=== PATIENT | male | born 1985 | race Caucasian/White ===

== ENCOUNTER 2019-08-15 15:14 | Emergency (ER) | payer MEDICAID ==
[~2019-08-15] VITALS: Ht 170.2 cm; Wt 68.0 kg
[2019-08-15 15:21] VITALS: BP 128/72
--- NOTE | 2019-08-15 15:21 | NUR ---
ED Nurse Note: PT walked in to ed for C/O pain to lower abd area. pt states he has not had a BM for over a week.
--- NOTE | 2019-08-15 15:30 | NUR ---
ED Nurse Note: Blood sample collected and sent to lab
--- NOTE | 2019-08-15 15:39 | Emergency Room Report ---
History of Present Illness General Chief Complaint: Abdominal Pain Source: Patient Present Illness HPI 34 YO male with 10/10 cramping abdominal pain x 1 day with bloating and constipation x 1 week. Pt. describes pain as constant in nature. Pt. currently on 8mg Daily of subutex for opiate dependence. Last BM was 1 week ago. Patient reports history of constipation he states he is not currently taking medications. Patient reports he has been taking more of his Subutex and normal states he has been taking approximately 9 to 10 mg daily when he is prescribed 8 mg. Patient denies nausea or vomiting, fevers or chills, diarrhea, blood in the stool or black tarry stools. Patient denies previous abdominal surgical history. Patient denies any other significant past medical history. Patient reports history of allergy to NSAIDs. No other aggravating or relieving factors at this time. 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 Patient History Past Medical History: see triage record Past Surgical History: none Pertinent Family History: none Social History: Reports: drug use - opiates Immunizations: UTD Reviewed Nursing Documentation: PMH: Agreed; PSxH: Agreed Nursing Documentation-PMH Past Medical History: No History, Except For Review of Systems All Other Systems: negative except mentioned in HPI Physical Exam Vital Signs Date Time Temp Pulse Resp B/P (MAP) Pulse Ox O2 Delivery O2 Flow Rate FiO2 08/15/19 15:22 97.5 125 16 112/73 (86) 97 Room Air Sp02 EP Interpretation: reviewed, normal General Appearance: no apparent distress, alert, GCS 15, non-toxic Head: normocephalic, atraumatic Eyes: bilateral eye normal inspection, bilateral eye PERRL ENT: hearing grossly normal, normal voice Neck: full range of motion Respiratory: lungs clear, normal breath sounds, speaking full sentences Cardiovascular #1: regular rate, rhythm Gastrointestinal: distended, tenderness - diffuse tenderness of entire lower abdomen. Genitourinary: normal inspection, no CVA tenderness Musculoskeletal: back normal, normal range of motion, gait/station normal, non- tender Neurologic: alert, motor strength/tone normal, oriented x3, sensory intact, responsive, speech normal Psychiatric: judgement/insight normal Skin: no rash, normal color Medical Decision Making PA Attestation Dr. Hook Is my supervising Physician whom patient management has been discussed with. Diagnostic Impression: Primary Impression: Constipation due to opioid therapy ER Course 34 YO male with 10/10 cramping abdominal pain x 1 day with bloating and constipation x 1 week. Pt. describes pain as constant in nature. Pt. currently on subutex for opiate dependence. Last BM was 1 week ago. Patient reports history of constipation he states he is not currently taking medications. Patient reports he has been taking more of his Subutex and normal states he has been taking approximately 9 to 10 mg daily when he is prescribed 8 mg. Patient denies nausea or vomiting, fevers or chills, diarrhea, blood in the stool or black tarry stools. Patient denies previous abdominal surgical history. Patient denies any other significant past medical history. Patient reports history of allergy to NSAIDs. No other aggravating or relieving factors at this time. Ddx considered but are not limited to Diverticulitis, acute appendicitis, diarrhea,UC, PUD, GE, pancreatitis, gallstone, Obstruction Vital signs: are WNL, pt. is afebrile H&PE are most consistent with possible GI obstruction ORDERS: -CBC, CMP, lipase, UA: WNL - CT Abdomen and pelvis. w. contrast: moderate amt. of stool/ constipation ED INTERVENTIONS: -- 1000NS, -Tylenol PO - Enema x 2 12mg Relistor Sq --PT. began having BM's in the ED. d/w pt. he will be d/c with strict ED return precautions. d/w pt. signs and symptoms that would indicate prompt return. -I do not identify an emergent condition at this time. With current presentation , pt. is stable for close outpatient follow up and conservative treatment. D/ w pt. to return promptly to ED with worsening or new symptoms.- Pt. verbalizes' understanding and agreement with proposed treatment plan. DISCHARGE: At this time pt. is stable for d/c to home. Will provide printed patient care instructions, and any necessary prescriptions. Care plan and follow up instructions have been discussed with the patient prior to discharge. Labs Test 5/29/20 15:30 White Blood Count 6.9 K/UL (4.8-10.8) Red Blood Count 4.63 M/UL (4.70-6.10) Hemoglobin 13.8 G/DL (14.2-18.0) Hematocrit 42.5 % (42.0-52.0) Mean Corpuscular Volume 92 FL (80-99) Mean Corpuscular Hemoglobin 29.8 PG (27.0-31.0) Mean Corpuscular Hemoglobin Concent 32.5 G/DL (32.0-36.0) Red Cell Distribution Width 12.4 % (11.6-14.8) Platelet Count 202 K/UL (150-450) Mean Platelet Volume 7.3 FL (6.5-10.1) Neutrophils (%) (Auto) 43.5 % (45.0-75.0) Lymphocytes (%) (Auto) 42.2 % (20.0-45.0) Monocytes (%) (Auto) 7.0 % (1.0-10.0) Eosinophils (%) (Auto) 5.6 % (0.0-3.0) Basophils (%) (Auto) 1.6 % (0.0-2.0) Sodium Level 143 MMOL/L (136-145) Potassium Level 4.1 MMOL/L (3.5-5.1) Chloride Level 107 MMOL/L (98-107) Carbon Dioxide Level 28 MMOL/L (21-32) Anion Gap 8 mmol/L (5-15) Blood Urea Nitrogen 23 mg/dL (7-18) Creatinine 1.1 MG/DL (0.55-1.30) Estimat Glomerular Filtration Rate > 60 mL/min (>60) Glucose Level 118 MG/DL (74-106) Calcium Level 8.9 MG/DL (8.5-10.1) Total Bilirubin 0.2 MG/DL (0.2-1.0) Aspartate Amino Transf (AST/SGOT) 27 U/L (15-37) Alanine Aminotransferase (ALT/SGPT) 54 U/L (12-78) Alkaline Phosphatase 111 U/L (46-116) Total Protein 7.3 G/DL (6.4-8.2) Albumin 3.8 G/DL (3.4-5.0) Globulin 3.5 g/dL Albumin/Globulin Ratio 1.1 (1.0-2.7) Lipase 398 U/L (73-393) CT/MRI/US Diagnostic Results CT/MRI/US Diagnostic Results : Imaging Test Ordered: - CT Abdomen and pelvis. w. contrast Impression " Impression: Considerable retained colonic stool, could indicate constipation. Correlate with clinical findings. There is also mild rectal and distal sigmoid and distention with feces, and the possibility of fecal impaction should be considered. No other acute or significant abnormality demonstrated"--- Per official radiology report- Please see report for specific details. Last Vital Signs Date Time Temp Pulse Resp B/P (MAP) Pulse Ox O2 Delivery O2 Flow Rate FiO2 08/15/19 15:22 97.5 125 16 112/73 (86) 97 Room Air Disposition: HOME, SELF-CARE Condition: Stable Scripts Docusate Sodium* (COLACE*) 100 Mg Capsule 100 MG ORAL THREE TIMES A DAY for 10 Days, #30 CAP Prov: Betty Sunshine 08/15/19 Patient Instructions: Constipation, Adult Additional Instructions: Take medications as directed. Follow up with a Primary Care Provider in 3-5 days, even if your symptoms have resolved. d/w prescribing provider regarding possible snf therapy to counteract opiate induced constipation. Return sooner to ED if new symptoms occur, or current symptoms become worse. - Please note that this Emergency Department Report was dictated using [email or web address] technology software, occasionally this can lead to erroneous entry secondary to interpretation by the dictation equipment. Betty Sunshine August 15, 2019 15:39
[2019-08-15] MEDS ORDERED: Omnipaque-300 100ml vial INJ PRN (15:45)
[2019-08-15 16:08] LABS: BASOPHILS % (AUTO) 1.6 % (0.0-2.0); EOSINOPHILS % (AUTO) 5.6 % (0.0-3.0); HEMATOCRIT 42.5 % (42.0-52.0); HEMOGLOBIN 13.8 G/DL (14.2-18.0); LYMPHOCYTES % (AUTO) 42.2 % (20.0-45.0); MEAN CORPUSCULAR VOLUME 92 FL (80-99); NEUTROPHILS % (AUTO) 43.5 % (45.0-75.0); PLATELET COUNT 202 K/UL (150-450); RED BLOOD COUNT 4.63 M/UL (4.70-6.10); RED CELL DISTRIBUTION WIDTH 12.4 % (11.6-14.8); WHITE BLOOD COUNT 6.9 K/UL (4.8-10.8)
[2019-08-15 16:23] LABS: ANION GAP 8 mmol/L (5-15); BLOOD UREA NITROGEN 23 mg/dL (7-18); CALCIUM 8.9 MG/DL (8.5-10.1); CARBON DIOXIDE 28 MMOL/L (21-32); CHLORIDE 107 MMOL/L (98-107); CREATININE 1.1 MG/DL (0.55-1.30); POTASSIUM 4.1 MMOL/L (3.5-5.1); SODIUM 143 MMOL/L (136-145)
[2019-08-15 16:28] LABS: ALANINE AMINOTRANSFERASE 54 U/L (12-78); ALBUMIN 3.8 G/DL (3.4-5.0); ALBUMIN/GLOBULIN RATIO 1.1 (1.0-2.7); ALKALINE PHOSPHATASE 111 U/L (46-116); ASPARTATE AMINO TRANSFERASE 27 U/L (15-37); BILIRUBIN,TOTAL 0.2 MG/DL (0.2-1.0)
--- NOTE | 2019-08-15 16:28 | NUR ---
ED Nurse Note: All due medication given at this time. pt is resting in bed. no acute distress is noted at this time.
--- NOTE | 2019-08-15 16:34 | NUR ---
ED Nurse Note: pt still complain of severe abdominal pain, notified ERPA.
--- NOTE | 2019-08-15 16:48 | NUR ---
ED Nurse Note: pt went on ct via wheelchair on stable condition.
--- NOTE | 2019-08-15 17:32 | Diagnostic Imaging Report ---
Clinical Indication: Lower abdominal pain Technique: No oral contrast utilized, per emergency room physician request IV administration nonionic contrast. Venous phase spiral acquisition obtained through the abdomen and pelvis. Multiplanar reconstructions were generated. Total dose length product . 76 mGycm. CTDIvol(s) 5 mGy. Dose reduction achieved using automated exposure control Comparison: none Findings: The rectum and distal sigmoid are mildly distended with fairly dense stool. Considerable stool is seen elsewhere in the colon as well. No evidence of colonic diverticulosis or diverticulitis. The appendix is unremarkable. The distal esophagus and stomach are unremarkable. No small bowel distention. No free or loculated intraperitoneal gas or fluid is evident. The liver, gallbladder, pancreas, spleen, adrenals, kidneys are unremarkable. No retroperitoneal or mesenteric mass or adenopathy. No pelvic mass or adenopathy. The included lung bases demonstrate dependent atelectatic changes posteriorly. The bones are unremarkable. Impression: Considerable retained colonic stool, could indicate constipation. Correlate with clinical findings. There is also mild rectal and distal sigmoid and distention with feces, and the possibility of fecal impaction should be considered. No other acute or significant abnormality demonstrated The CT scanner at [facility] is accredited by the [employer] and the scans are performed using protocols designed to limit radiation exposure to as low as reasonably achievable to attain images of sufficient resolution adequate for diagnostic evaluation.
[2019-08-15] MEDS ORDERED: Acetaminophen 500mg (ES) tab ORAL ONE (17:45)
[2019-08-15] MEDS ORDERED: Fleet's Enema 133ml RECTAL ONE ×2 (17:45→19:00)
[2019-08-15] MEDS ORDERED: Magnesium Citrate Liq Btl ORAL ONE (18:15)
--- NOTE | 2019-08-15 18:52 | NUR ---
ED Nurse Note: IV site removed without complications.
[2019-08-15] MEDS ORDERED: COLACE100 MG ORAL (19:01)
[2019-08-15 19:09] VITALS: BP 112/73
--- NOTE | 2019-08-15 19:09 | NUR ---
ER DISCHARGE NOTE: Patient is cleared to be discharged per ERMD, pt is aox4, on room air, with stable vital signs. pt was given dc and prescription instructions, pt was able to verbalize understanding, pt id band and iv site removed without complications. pt is able to ambulate with steady gait. pt took all belongings.
[2019-08-17] MEDS ORDERED: Relistor 12mg/0.6ml Vial SUBQ SCH (09:00)
== END 2019-08-15 19:09 | disposition home or self-care (01) ==
LOC: EMR 15:45
DX: K59.03 Drug induced constipation (principal); T40.2X5A Adverse effect of other opioids, initial encounter; Y92.9 Unspecified place or not applicable; Z88.6 Allergy status to analgesic agent
CPT/HCPCS: 36415; 74177; 80053; 83690; 85025; 96360; J7030; Q9967; Z7502; 99284